=== PATIENT | female | born 1990 | race Caucasian/White ===

== ENCOUNTER 2019-02-18 14:43 | Inpatient (IN) | payer SELFPAY ==
[~2019-02-18] VITALS: Ht 157.5 cm; Wt 50.0 kg
[2019-02-18 15:34] LABS: BASO % 1 % (0-3); EOS # 0.2 x10^3/uL (0.0-0.7); EOS % 2 % (0-3); HEMOGLOBIN 16.5 g/dL (12.0-15.5); LYMPH # 2.1 x10^3/uL (1.0-4.8); LYMPH % 26 % (24-48); MEAN CORPUSCULAR HEMOGLOBIN 32 pg (25-35); MEAN CORPUSCULAR HGB CONC 35 g/dL (31-37); MEAN CORPUSCULAR VOLUME 92 fL (79-100); MONO # 0.6 x10^3/uL (0.0-1.1); MONO % 8 % (0-9); NEUT # 5.1 x10^3/uL (1.8-7.7); NEUT % 63 % (31-73); PLATELET COUNT 337 x10^3/uL (140-400); RED CELL DISTRIBUTION WIDTH 13.7 % (11.5-14.5)
[2019-02-18 15:39] LABS: CALCIUM 9.8 mg/dL (8.5-10.1); CREATININE 0.7 mg/dL (0.6-1.0); GFR 98.3; POTASSIUM 3.7 mmol/L (3.5-5.1)
[2019-02-18 15:43] LABS: ACETAMIN < 2 mcg/ml (10-30); SALIC < 2.8 mg/dL (2.8-20.0)
[2019-02-18 15:44] LABS: ETHANOL < 10 mg/dL (0-10)
[2019-02-18 15:46] LABS: ALBUMIN 4.6 g/dL (3.4-5.0); ALBUMIN/GLOBULIN RATIO 1.3 (1.0-1.7); TOTAL BILIRUBIN 0.6 mg/dL (0.2-1.0); TOTAL PROTEIN 8.1 g/dL (6.4-8.2)
[2019-02-18 16:28] LABS: BILIRUBIN,URINE NEGATIVE (NEG); CLARITY,URINE CLEAR; COLOR,URINE YELLOW; NITRITE,URINE NEGATIVE (NEG); PROTEIN,URINE NEGATIVE (NEG-TRACE)
[2019-02-18 16:39] LABS: BACTERIA,URINE 0 /HPF (0-FEW); RBC,URINE 0 /HPF (0-2); SQUAMOUS EPITHELIAL CELL,UR OCC /LPF
[2019-02-18 16:43] LABS: U PREG PATIENT NEGATIVE (NEG)
[2019-02-18 16:51] LABS: BARBITURATES NEG (NEG); BENZODIAZEPINES NEG (NEG); CANNABINOIDS NEG (NEG); COCAINE NEG (NEG); METHADONE NEG (NEG); OPIATES NEG (NEG); PHENCYCLIDINE NEG (NEG)
[2019-02-18 16:54] LABS: AMPHETAMINE/METHAMPHETAMINE POS (NEG)
--- NOTE | 2019-02-18 18:02 | PHYS DOC ---
Past Medical History Past Medical History: No Pertinent History (CATALINA SHARP BREAKER MACHINE OPERATOR) Past Surgical History: No Surgical History (CATALINA SHARP BREAKER MACHINE OPERATOR) Alcohol Use: Occasionally Drug Use: Methamphetamine (CATALINA SHARP M BREAKER MACHINE OPERATOR) Adult General Chief Complaint Chief Complaint: DRUG ABUSE HPI HPI Patient is a 28 year old female who presents with has a history of meth use and states she smoked it lasts yesterday. Patient denies suicidal ideation or attempts recently but states she's had suicidal ideation in the past. She states that she feels very confused and unsure and nervous but can't explain it. She states she has flight of thoughts. (CATALINA SHARP BREAKER MACHINE OPERATOR) Review of Systems Review of Systems Constitutional: Drug abuse. Denies fever or chills [] Neurologic: AMS. Denies headache, focal weakness or sensory changes [] All other systems were reviewed and found to be within normal limits, except as documented in this note. (CATALINA SHARP BREAKER MACHINE OPERATOR) Allergies Allergies Allergies Coded Allergies Type Severity Reaction Last Updated Verified No Known Drug Allergies 02/18/19 No (VAIBHAV DE OLIVEIRA MD) Physical Exam Physical Exam Constitutional: Well developed, well nourished, no acute distress, non-toxic appearance. [] HENT: Normocephalic, atraumatic, bilateral external ears normal, oropharynx moist, no oral exudates, nose normal. [] Eyes: PERRLA, EOMI, conjunctiva normal, no discharge. [] Neck: Normal range of motion, no tenderness, supple, no stridor. [] Cardiovascular:Heart rate regular rhythm, no murmur [] Lungs & Thorax: Bilateral breath sounds clear to auscultation [] Abdomen: Bowel sounds normal, soft, no tenderness, no masses, no pulsatile masses. [] Skin: Warm, dry, no erythema, no rash. [] Back: No tenderness, no CVA tenderness. [] Extremities: No tenderness, no cyanosis, no clubbing, ROM intact, no edema. [] Neurologic: Flight of thoughts. Alert and oriented X 3, normal motor function, normal sensory function, no focal deficits noted. [] Psychologic: Affect normal, judgement normal, mood normal. [] (CATALINA SHARP BREAKER MACHINE OPERATOR) Current Patient Data Vital Signs Vital Signs Date Time Temp Pulse Resp B/P (MAP) Pulse Ox O2 Delivery O2 Flow Rate FiO2 02/18/19 15:10 97.4 74 16 128/89 (102) 98 Room Air 97.4 (VAIBHAV DE OLIVEIRA MD) Lab Values Laboratory Tests Test 02/18/19 15:00 02/18/19 15:20 Urine Color Yellow Urine Clarity Clear Urine pH 6.0 Urine Specific [place] 1.010 Urine Protein Negative mg/dL (NEG-TRACE) Urine Glucose (UA) Negative mg/dL (NEG) Urine Ketones (Stick) Trace mg/dL (NEG) Urine Blood Negative (NEG) Urine Nitrite Negative (NEG) Urine Bilirubin Negative (NEG) Urine Urobilinogen Dipstick 1.0 mg/dL (0.2 mg/dL) Urine Leukocyte Esterase Small (NEG) Urine RBC 0 /HPF (0-2) Urine WBC 5-10 /HPF (0-4) Urine Squamous Epithelial Cells Occ /LPF Urine Bacteria 0 /HPF (0-FEW) Urine Mucus Slight /LPF Urine Test Negative (NEG) Urine Opiates Screen Neg (NEG) Urine Methadone Screen Neg (NEG) Urine Barbiturates Neg (NEG) Urine Phencyclidine Screen Neg (NEG) Urine Amphetamine/Methamphetamine Pos (NEG) Urine Benzodiazepines Screen Neg (NEG) Urine Cocaine Screen Neg (NEG) Urine Cannabinoids Screen Neg (NEG) Urine Ethyl Alcohol Neg (NEG) White Blood Count 8.0 x10^3/uL (4.0-11.0) Red Blood Count 5.10 x10^6/uL (3.50-5.40) Hemoglobin 16.5 g/dL (12.0-15.5) H Hematocrit 47.0 % (36.0-47.0) Mean Corpuscular Volume 92 fL (79-100) Mean Corpuscular Hemoglobin 32 pg (25-35) Mean Corpuscular Hemoglobin Concent 35 g/dL (31-37) Red Cell Distribution Width 13.7 % (11.5-14.5) Platelet Count 337 x10^3/uL (140-400) Neutrophils (%) (Auto) 63 % (31-73) Lymphocytes (%) (Auto) 26 % (24-48) Monocytes (%) (Auto) 8 % (0-9) Eosinophils (%) (Auto) 2 % (0-3) Basophils (%) (Auto) 1 % (0-3) Neutrophils # (Auto) 5.1 x10^3/uL (1.8-7.7) Lymphocytes # (Auto) 2.1 x10^3/uL (1.0-4.8) Monocytes # (Auto) 0.6 x10^3/uL (0.0-1.1) Eosinophils # (Auto) 0.2 x10^3/uL (0.0-0.7) Basophils # (Auto) 0.0 x10^3/uL (0.0-0.2) Sodium Level 139 mmol/L (136-145) Potassium Level 3.7 mmol/L (3.5-5.1) Chloride Level 101 mmol/L (98-107) Carbon Dioxide Level 27 mmol/L (21-32) Anion Gap 11 (6-14) Blood Urea Nitrogen 7 mg/dL (7-20) Creatinine 0.7 mg/dL (0.6-1.0) Estimated GFR (Cockcroft-Gault) 98.3 BUN/Creatinine Ratio 10 (6-20) Glucose Level 83 mg/dL (70-99) Calcium Level 9.8 mg/dL (8.5-10.1) Total Bilirubin 0.6 mg/dL (0.2-1.0) Aspartate Amino Transferase (AST) 17 U/L (15-37) Alanine Aminotransferase (ALT) 15 U/L (14-59) Alkaline Phosphatase 58 U/L (46-116) Total Protein 8.1 g/dL (6.4-8.2) Albumin 4.6 g/dL (3.4-5.0) Albumin/Globulin Ratio 1.3 (1.0-1.7) Salicylates Level < 2.8 mg/dL (2.8-20.0) L Salicylate Last Dose Date Unk Salicylate Last Dose Time Unk Acetaminophen Level < 2 mcg/ml (10-30) L Acetaminophen Last Dose Date Unk Acetaminophen Last Dose Time Unk Ethyl Alcohol Level < 10 mg/dL (0-10) Laboratory Tests 02/18/19 15:20 Laboratory Tests 02/18/19 15:20 Microbiology 02/18/19 Urine Culture - Final, Complete 02/18/19 Urine Culture Result 1 (YOSI) - Final, Complete (VAIBHAV DE OLIVEIRA MD) EKG EKG [] (CATALINA SHARP APRN) Radiology/Procedures Radiology/Procedures [] (CATALINA SHARP APRN) Impressions: [facility] [address] [place] [address] IMAGING REPORT Signed PATIENT: ASHLEY MATHEW ACCOUNT: [id number] : 1990 LOCATION: ER AGE: 28 SEX: F EXAM STATUS: REG ER ORD. PHYSICIAN: CATALINA SHARP APRN REASON: ams PROCEDURE: CT HEAD WO CONTRAST CT HEAD INDICATION: Altered mental status COMPARISON: None Available. Exposure: One or more of the following individualized dose reduction techniques were utilized for this examination: 1. Automated exposure control 2. Adjustment of the mA and/or kV according to patient size 3. Use of iterative reconstruction technique TECHNIQUE: 5 mm contiguous axial images were obtained from the skull base to the vertex in both bone and soft tissue algorithm. FINDINGS: No abnormal attenuation within the brain parenchyma. No evidence of acute intracranial hemorrhage. No extra-axial fluid collections. No mass effect or midline shift. Ventricular size is appropriate. Basal cisterns are patent. No fractures identified.Cesar-white differentiation is preserved.Globes and orbits are within normal limits. Paranasal sinuses and mastoid air cells are clear. IMPRESSION: . No acute intracranial findings. Electronically signed by: Mark Kraft MD (02/18/2019 6:18 PM) [facility] DICTATED and SIGNED BY: MARK KRAFT MD DATE: 02/18/191817 (CATALINA SHARP APRN) Course & Med Decision Making Course & Med Decision Making Alert and oriented. Speaks in clear sentences. PERRLA. Lungs are clear to auscultation all lobes. Ambulatory with steady gait. Patient states that she last smoked meth yesterday but told Makenzie from [facility] team that she smoked it today. She states she is homeless and moving from place to place but her aunt let her come over and do her laundry and keep things there. She states that she's been having sex with pupils that she can stay places. She states that she had gotten a job and was starting to get her life together but now has lost her job and started doing drugs again. Patient is unable to tell me how long that she was clean for how long she was able to hold a job. She states she has no relation up with her family and hardly even gets to talk to them. States things are just weird and very hard with her family and she just doesn't know if that her dad is mad at her something. She states that she is a "mess up" and she knows it and that she was getting "picked on" and "family thinks that she is a joke but is not a joke." Patient has flight of thoughts and cannot get out of full sentence patient states "I guess so, may be" to getting help for her drug problem. Denies any hallucinations. Most answers to the questions are fragmented sentences and she either states "I'm not sure" or "I can't remember" or "I don't know". Patient states that she feels very tired but she has not slept but cannot tell me how long it has been since she slept last period patient just keeps saying and "see i cant get my thoughts together and I just don't know, I can't get out what I want to stay." She denies chest pain, numbness or tingling, abdominal pain, nausea, vomiting, diarrhea, fever, recent illness, head injury in the past or recent, physical abuse, syncope, dizziness, headache, visual changes, shortness of air. Patient follows all commands appropriately. Patient's urine is positive for meth but negative for . Physical exam is normal except for her flight of thoughts. Makenzie from [facility] team agrees that the patient is altered but she is also on drugs and has not slept in days. Patient is not forthcoming with information. She denies any pain. Also when asked if she is suicidal she stated to Makenzie from [facility] team that "No but Who wouldn't want to be with the life i'm living." I've spoken to Dr. Muller for admission for altered mental state and drug use and Makenzie from [facility] team states that she will come in the morning and reassess the patient after the patient has gotten some sleep. Makenzie from [facility] team states that the patient will likely be able to get into [facility] tomorrow. (CATALINA SHARP APRN) Course & Med Decision Making I was not involved in the care of this patient after 1800 on 02/18/2019. (VAIBHAV DE OLIVEIRA MD) Dragon Disclaimer Dragon Disclaimer This electronic medical record was generated, in whole or in part, using a voice recognition dictation system. (CATALINA SHARP APRN) NIHSS Stroke Scale NIH Stroke Scale: NIH Stroke Scale Response (Comments) Value Level of Consciousness: 0 Alert/Responsive 0 LOC Questions: 0 Answers both correctly 0 LOC Commands: 0 Performs both tasks 0 Best Gaze: 0 Normal 0 Visual: 0 No visual loss 0 Facial Palsy: 0 Normal, symmetrical 0 Motor - Left Arm 0 No drift 0 Motor - Right Arm 0 No drift 0 Motor - Left Leg 0 No drift 0 Motor: Right Leg 0 No drift 0 Limb Ataxia: 0 Absent 0 Sensory: 0 No loss 0 Best Language: 0 Normal 0 Dysathria: 0 Normal 0 Extinction and Inattention: 0 Normal 0 Total 0 Departure Departure Impression: Primary Impression: Methamphetamine abuse Additional Impression: Altered mental status Disposition: 09 ADMITTED INPATIENT Admitting Physician: TARA (CATALINA SHARP APRN) Condition: STABLE Referrals: NO PCP (PCP) Scripts No Active Prescriptions or Reported Meds Problem Qualifiers Additional Impression: Altered mental status Altered mental status type: unspecified Qualified Codes: R41.82 - Altered mental status, unspecified CATALINA SHARP APRN Feb 18, 2019 18:02 VAIBHAV DE OLIVEIRA MD Feb 23, 2019 06:06
--- NOTE | 2019-02-18 18:21 | RAD ---
CT HEAD INDICATION: Altered mental status COMPARISON: None Available. Exposure: One or more of the following individualized dose reduction techniques were utilized for this examination: 1. Automated exposure control 2. Adjustment of the mA and/or kV according to patient size 3. Use of iterative reconstruction technique TECHNIQUE: 5 mm contiguous axial images were obtained from the skull base to the vertex in both bone and soft tissue algorithm. FINDINGS: No abnormal attenuation within the brain parenchyma. No evidence of acute intracranial hemorrhage. No extra-axial fluid collections. No mass effect or midline shift. Ventricular size is appropriate. Basal cisterns are patent. No fractures identified.Cesar-white differentiation is preserved.Globes and orbits are within normal limits. Paranasal sinuses and mastoid air cells are clear. IMPRESSION: . No acute intracranial findings. Electronically signed by: Mark Kraft MD (02/18/2019 6:18 PM) [id number]
[2019-02-18] MEDS ORDERED: ACETAMINOPHEN 325 MG TABLET. PO PRN (18:30)
[2019-02-18 19:50] VITALS: BP 124/84
--- NOTE | 2019-02-18 22:00 | NUR ---
ADMIT NOTE The patient, ASHLEY MATHEW, 28 y/o, F admitted by LISA CARMONA III, DO, was given written information regarding hospital policies, unit procedures and contact persons. Patient admission assessment complete, admit packet reviewed, and plan of care discussed. Valuables were checked and left in room with patient. Patient orientated to room, bed in lowest/locked position, no s/sx of distress at this time or needs voiced and call light within reach.
[2019-02-18 22:21] VITALS: BP 124/84
[2019-02-18 23:00] VITALS: BP 97/48
[2019-02-19 03:00] VITALS: BP 97/58
[2019-02-19 07:00] VITALS: BP 100/48
--- NOTE | 2019-02-19 08:34 | PDOC1 ---
History and Physical Date of Admission Date of Admission DATE: 02/19/19 TIME: 08:29 Identification/Chief Complaint Chief Complaint Altered mental status Source Source: Caregiver, Chart review, Patient History of Present Illness History of Present Illness Ms Farrar is a 28yo F w/ PMHx methamphetamine abuse p/w confusion and bizarre behavior, homeless to ED. States that she last smoked meth before arrival to the ED. She states she is homeless and moving from place to place but her aunt let her come over and do her laundry and keep things there. She states that she's been having sex with pupils that she can stay places. She states that she had gotten a job and was starting to get her life together but now has lost her job and started doing k[employer] g[employer] again. Patient is unable to tell me how long that she was clean for how long she was able to hold a job. Patient has flight of thoughts and cannot get out of full sentence patient states "I guess so, may be" to getting help for her drug problem. Denies any hallucinations. Most answers to the questions are fragmented sentences and she either states "I'm not sure" or "I can't remember" or "I don't know". Patient states that she feels very tired but she has not slept but cannot tell me how long it has been since she slept last period patient just keeps saying and "see i cant get my thoughts together and I just don't know, I can't get out what I want to stay." She denies chest pain, numbness or tingling, abdominal pain, nausea, vomiting, diarrhea, fever, recent illness, head injury in the past or recent, physical abuse, syncope, dizziness, headache, visual changes, shortness of air. Patient follows all commands appropriately. Patient's urine is positive for meth but negative for . On further review she notes she had not slept in days. States she is not exchanging methamphetamine for sex and that she has a place to stay with her aunt. Past Medical History Cardiovascular: No pertinent hx Pulmonary: No pertinent hx Psych: Anxiety, Addictions, Depression Past Surgical History Past Surgical History: No pertinent history Family History Family History: Hypertension Social History Smoke: <1 pack per day ALCOHOL: rare Drugs: Crystal meth Current Problem List Problem List Problems Medical Problems: (1) Altered mental status Status: Acute (2) Methamphetamine abuse Status: Acute Current Medications Current Medications Current Medications Acetaminophen (Tylenol) 650 mg PRN Q4HRS PRN PO FEVER; Start 02/18/19 at 18:30; Stop 02/19/19 at 18:29 Allergies Allergies: Coded Allergies: No Known Drug Allergies (Unverified , 02/18/19) ROS General: YES: Fatigue, Malaise; No: Chills, Night Sweats, Appetite, Other PSYCHOLOGICAL ROS: YES: Disorientation, Irritablity, Memory difficulties, Mood Swings, Obsessive thoughts, Sleep disturbances; No: Anxiety, Behavioral Disorder, Concentration difficultie, Decreased libido, Depression, Hallucinations, Hostility, Physical abuse, Sexual abuse, Suicidal ideation, Other Eyes: No Blurry vision, No Decreased vision, No Double vision, No Dry eyes, No Excessive tearing, No Eye Pain, No Itchy Eyes, No Loss of vision, No Photophobia, No Scotomata, No Uses contacts, No Uses glasses, No Other HEENT: No: Heacaches, Visual Changes, Hearing change, Nasal congestion, Nasal discharge, Oral lesions, Sinus pain, Sore Throat, Epistaxis, Sneezing, Snoring, Tinnitus, Vertigo, Vocal changes, Other ALLERGY AND IMMUNOLOGY: No: Hives, Insect Bite Sensitivity, Itchy/Watery Eyes, Nasal Congestion, Post Nasal Drip, Seasonal Allergies, Other Hematological and Lymphatic: No: Bleeding Problems, Blood Clots, Blood Transfusions, Brusing, Night Sweats, Pallor, Swollen Lymph Nodes, Other ENDOCRINE: No: Breast Changes, Galactorrhea, Hair Pattern Changes, Hot Flashes, Malaise/lethargy, Mood Swings, Palpitations, Polydipsia/polyuria, Skin Changes, Temperature Intolerance, Unexpected Weight Changes, Other Breast: No New/Changing Breast Lumps, No Nipple changes, No Nipple discharge, No Other Respiratory: No: Cough, Hemoptysis, Orthopnea, Pleuritic Pain, Shortness of breath, SOB with excertion, Sputum Changes, Stridor, Tachypnea, Wheezing, Other Cardiovascular: No Chest Pain, No Palpitations, No Orthopnea, No Paroxysmal Noc. Dyspnea, No Edema, No Lt Headedness, No Other Gastrointestinal: No Nausea, No Vomiting, No Abdominal Pain, No Diarrhea, No Constipation, No Melena, No Hematochezia, No Other Genitourinary: No Dysuria, No Frequency, No Incontinence, No Hematuria, No Retention, No Discharge, No Urgency, No Pain, No Flank Pain, No Other, No , No , No , No , No , No , No Musculoskeletal: No Gait Disturbance, No Joint Pain, No Joint Stiffness, No Joint Swelling, No Muscle Pain, No Muscular Weakness, No Pain In:, No Swelling In:, No Other Neurological: No Behavorial Changes, No Bowel/Bladder ControlChng, No Confusion, No Dizziness, No Gait Disturbance, No Headaches, No Impaired Coord/balance, No Memory Loss, No Numbness/Tingling, No Seizures, No Speech Problems, No Tremors, No Visual Changes, No Weakness, No Other Skin: No Dry Skin, No Eczema, No Hair Changes, No Lumps, No Mole Changes, No Mottling, No Nail Changes, No Pruritus, No Rash, No Skin Lesion Changes, No Other, No Acne Physical Exam General: Alert, Oriented X3, Cooperative, No acute distress HEENT: Atraumatic, PERRLA, EOMI, Mucous membr. moist/pink Lungs: Clear to auscultation, Normal air movement Heart: S1S2, RRR, no thrills, no rubs Abdomen: Normal bowel sounds, Soft, No tenderness, No hepatosplenomegaly, No masses Rectal Exam: not examined Extremities: No clubbing, No cyanosis, No edema, Normal pulses, No tenderness/swelling Skin: No rashes, No breakdown, No significant lesion Neuro: Normal gait, Normal speech, Strength at 5/5 X4 ext, Normal tone, Sensation intact, Cranial nerves 3-12 NL, Reflexes 2+ Psych/Mental Status: Mental status NL, Mood NL Vitals Vitals Vital Signs Date Time Temp Pulse Resp B/P (MAP) Pulse Ox O2 Delivery O2 Flow Rate FiO2 02/19/19 07:00 98.3 56 18 100/48 (65) 100 Room Air 98.3 Labs Labs Laboratory Tests Test 02/18/19 15:00 02/18/19 15:20 Urine Color Yellow Urine Clarity Clear Urine pH 6.0 Urine Specific [place] 1.010 Urine Protein Negative mg/dL (NEG-TRACE) Urine Glucose (UA) Negative mg/dL (NEG) Urine Ketones (Stick) Trace mg/dL (NEG) Urine Blood Negative (NEG) Urine Nitrite Negative (NEG) Urine Bilirubin Negative (NEG) Urine Urobilinogen Dipstick 1.0 mg/dL (0.2 mg/dL) Urine Leukocyte Esterase Small (NEG) Urine RBC 0 /HPF (0-2) Urine WBC 5-10 /HPF (0-4) Urine Squamous Epithelial Cells Occ /LPF Urine Bacteria 0 /HPF (0-FEW) Urine Mucus Slight /LPF Urine Test Negative (NEG) Urine Opiates Screen Neg (NEG) Urine Methadone Screen Neg (NEG) Urine Barbiturates Neg (NEG) Urine Phencyclidine Screen Neg (NEG) Urine Amphetamine/Methamphetamine Pos (NEG) Urine Benzodiazepines Screen Neg (NEG) Urine Cocaine Screen Neg (NEG) Urine Cannabinoids Screen Neg (NEG) Urine Ethyl Alcohol Neg (NEG) White Blood Count 8.0 x10^3/uL (4.0-11.0) Red Blood Count 5.10 x10^6/uL (3.50-5.40) Hemoglobin 16.5 g/dL (12.0-15.5) Hematocrit 47.0 % (36.0-47.0) Mean Corpuscular Volume 92 fL (79-100) Mean Corpuscular Hemoglobin 32 pg (25-35) Mean Corpuscular Hemoglobin Concent 35 g/dL (31-37) Red Cell Distribution Width 13.7 % (11.5-14.5) Platelet Count 337 x10^3/uL (140-400) Neutrophils (%) (Auto) 63 % (31-73) Lymphocytes (%) (Auto) 26 % (24-48) Monocytes (%) (Auto) 8 % (0-9) Eosinophils (%) (Auto) 2 % (0-3) Basophils (%) (Auto) 1 % (0-3) Neutrophils # (Auto) 5.1 x10^3/uL (1.8-7.7) Lymphocytes # (Auto) 2.1 x10^3/uL (1.0-4.8) Monocytes # (Auto) 0.6 x10^3/uL (0.0-1.1) Eosinophils # (Auto) 0.2 x10^3/uL (0.0-0.7) Basophils # (Auto) 0.0 x10^3/uL (0.0-0.2) Sodium Level 139 mmol/L (136-145) Potassium Level 3.7 mmol/L (3.5-5.1) Chloride Level 101 mmol/L (98-107) Carbon Dioxide Level 27 mmol/L (21-32) Anion Gap 11 (6-14) Blood Urea Nitrogen 7 mg/dL (7-20) Creatinine 0.7 mg/dL (0.6-1.0) Estimated GFR (Cockcroft-Gault) 98.3 BUN/Creatinine Ratio 10 (6-20) Glucose Level 83 mg/dL (70-99) Calcium Level 9.8 mg/dL (8.5-10.1) Total Bilirubin 0.6 mg/dL (0.2-1.0) Aspartate Amino Transf (AST/SGOT) 17 U/L (15-37) Alanine Aminotransferase (ALT/SGPT) 15 U/L (14-59) Alkaline Phosphatase 58 U/L (46-116) Total Protein 8.1 g/dL (6.4-8.2) Albumin 4.6 g/dL (3.4-5.0) Albumin/Globulin Ratio 1.3 (1.0-1.7) Salicylates Level < 2.8 mg/dL (2.8-20.0) Salicylate Last Dose Date Unk Salicylate Last Dose Time Unk Acetaminophen Level < 2 mcg/ml (10-30) Acetaminophen Last Dose Date Unk Acetaminophen Last Dose Time Unk Ethyl Alcohol Level < 10 mg/dL (0-10) Laboratory Tests Test 02/18/19 15:00 02/18/19 15:20 Urine Color Yellow Urine Clarity Clear Urine pH 6.0 Urine Specific [place] 1.010 Urine Protein Negative mg/dL (NEG-TRACE) Urine Glucose (UA) Negative mg/dL (NEG) Urine Ketones (Stick) Trace mg/dL (NEG) Urine Blood Negative (NEG) Urine Nitrite Negative (NEG) Urine Bilirubin Negative (NEG) Urine Urobilinogen Dipstick 1.0 mg/dL (0.2 mg/dL) Urine Leukocyte Esterase Small (NEG) Urine RBC 0 /HPF (0-2) Urine WBC 5-10 /HPF (0-4) Urine Squamous Epithelial Cells Occ /LPF Urine Bacteria 0 /HPF (0-FEW) Urine Mucus Slight /LPF Urine Test Negative (NEG) Urine Opiates Screen Neg (NEG) Urine Methadone Screen Neg (NEG) Urine Barbiturates Neg (NEG) Urine Phencyclidine Screen Neg (NEG) Urine Amphetamine/Methamphetamine Pos (NEG) Urine Benzodiazepines Screen Neg (NEG) Urine Cocaine Screen Neg (NEG) Urine Cannabinoids Screen Neg (NEG) Urine Ethyl Alcohol Neg (NEG) White Blood Count 8.0 x10^3/uL (4.0-11.0) Red Blood Count 5.10 x10^6/uL (3.50-5.40) Hemoglobin 16.5 g/dL (12.0-15.5) Hematocrit 47.0 % (36.0-47.0) Mean Corpuscular Volume 92 fL (79-100) Mean Corpuscular Hemoglobin 32 pg (25-35) Mean Corpuscular Hemoglobin Concent 35 g/dL (31-37) Red Cell Distribution Width 13.7 % (11.5-14.5) Platelet Count 337 x10^3/uL (140-400) Neutrophils (%) (Auto) 63 % (31-73) Lymphocytes (%) (Auto) 26 % (24-48) Monocytes (%) (Auto) 8 % (0-9) Eosinophils (%) (Auto) 2 % (0-3) Basophils (%) (Auto) 1 % (0-3) Neutrophils # (Auto) 5.1 x10^3/uL (1.8-7.7) Lymphocytes # (Auto) 2.1 x10^3/uL (1.0-4.8) Monocytes # (Auto) 0.6 x10^3/uL (0.0-1.1) Eosinophils # (Auto) 0.2 x10^3/uL (0.0-0.7) Basophils # (Auto) 0.0 x10^3/uL (0.0-0.2) Sodium Level 139 mmol/L (136-145) Potassium Level 3.7 mmol/L (3.5-5.1) Chloride Level 101 mmol/L (98-107) Carbon Dioxide Level 27 mmol/L (21-32) Anion Gap 11 (6-14) Blood Urea Nitrogen 7 mg/dL (7-20) Creatinine 0.7 mg/dL (0.6-1.0) Estimated GFR (Cockcroft-Gault) 98.3 BUN/Creatinine Ratio 10 (6-20) Glucose Level 83 mg/dL (70-99) Calcium Level 9.8 mg/dL (8.5-10.1) Total Bilirubin 0.6 mg/dL (0.2-1.0) Aspartate Amino Transf (AST/SGOT) 17 U/L (15-37) Alanine Aminotransferase (ALT/SGPT) 15 U/L (14-59) Alkaline Phosphatase 58 U/L (46-116) Total Protein 8.1 g/dL (6.4-8.2) Albumin 4.6 g/dL (3.4-5.0) Albumin/Globulin Ratio 1.3 (1.0-1.7) Salicylates Level < 2.8 mg/dL (2.8-20.0) Salicylate Last Dose Date Unk Salicylate Last Dose Time Unk Acetaminophen Level < 2 mcg/ml (10-30) Acetaminophen Last Dose Date Unk Acetaminophen Last Dose Time Unk Ethyl Alcohol Level < 10 mg/dL (0-10) Images Images CT head - no abnormality VTE Prophylaxis Ordered VTE Prophylaxis Devices: No VTE Pharmacological Prophylaxi: No Assessment/Plan Assessment/Plan A/P: Acute encephalopathy - acute psychosis 2/2 methamphetamine intoxication most likely. Negative CT head. labs only positive for methamphetamine Acute methamphetamine intoxication - admitted as patient did not know where she was or where she came from Bizarre behavior - likely related to methamphetmine FEN - General PPX - SCDs FULL CODE Dispo - observe until not intoxicated to complete history, likely safe to discharge into care of family after that. SAYRA GUIDO MD Feb 19, 2019 08:34
[2019-02-19 11:00] VITALS: BP 106/65
[2019-02-19] MEDS ORDERED: NICOTINE 21MG PATCH. TD SCH (11:00)
--- NOTE | 2019-02-19 11:00 | NUR ---
C/o wanting to smoke, smokes per pt 7 cigarettes per day, assessment 1 PPD, order rec'd for Nicotine Patch
--- NOTE | 2019-02-19 12:46 | NUR ---
SW following. Discussed with RN, PAT team saw pt in ER. Saw again this morning. Pt can discharge today to [facility] ([id number], [place], [address]). PAT team will be back around 1430 to see pt, then pt can discharge with a cab pass. RN notified.
--- NOTE | 2019-02-21 21:46 | PDOC3 ---
Discharge Summary Visit Information Date of Admission: Feb 18, 2019 Date of Discharge: Feb 19, 2019 Admitting Diagnosis: Acute encephalopathy Final Diagnosis Problems Medical Problems: (1) Altered mental status Status: Acute (2) Methamphetamine abuse Status: Acute Brief Hospital Course Allergies Allergies Coded Allergies Type Severity Reaction Last Updated Verified No Known Drug Allergies 02/18/19 No Brief Hospital Course Ms Farrar is a 28yo F admitted confused with bizarre behavior, homeless during freezing weather, found intoxicated on methamphetamine. After 36 hours she sobered up and was able to find family with whom to live and resources for methamphetamine cessation. Problem list: Acute encephalopathy - acute psychosis 2/2 methamphetamine intoxication most likely. Negative CT head. labs only positive for methamphetamine Acute methamphetamine intoxication - admitted as patient did not know where she was or where she came from Bizarre behavior - likely related to methamphetmine Seen by psychiatric assessment team social work msw, given rehab information. Dispo - observed until not intoxicated to complete history, likely safe to discharge into care of family after that. 135 minutes spent on same day admit and d/c Discharge Information Condition at Discharge: Improved Follow Up: Weeks Disposition/Orders: D/C to Home No Active Prescriptions or Reported Meds SAYRA GUIDO MD Feb 21, 2019 21:46
== END 2019-02-19 16:43 | disposition home or self-care (01) | DRG 918 ==
LOC: ER 14:43 → 4 NORTH 18:01
PROVIDERS: ADMIT Internal Medicine; ATTEND Internal Medicine
DX: T43.621A Poisoning by amphetamines, accidental (unintentional), initial encounter (principal); G93.40 Encephalopathy, unspecified; F23 Brief psychotic disorder; F15.129 Other stimulant abuse with intoxication, unspecified; F41.9 Anxiety disorder, unspecified; F32.9 Major depressive disorder, single episode, unspecified; F17.210 Nicotine dependence, cigarettes, uncomplicated; Z56.0 Unemployment, unspecified; Z59.0 Homelessness; Z82.49 Family history of ischemic heart disease and other diseases of the circulatory system
CPT/HCPCS: 36415; 70450; 80053; 80307; 80329; 81001; 81025; 85025; 87086; G0480; 99285-25; G0378